=== PATIENT | female | born 1960 | race Two or more races ===

== ENCOUNTER 2017-08-12 10:47 | Emergency (ER) | payer MEDICAID ==
[~2017-08-12] VITALS: Ht 162.6 cm; Wt 65.3 kg
[2017-08-12 10:55] VITALS: BP 131/78
== END 2017-08-12 11:52 | disposition home or self-care (01) ==
LOC: ER 10:49
DX: S13.4XXA Sprain of ligaments of cervical spine, initial encounter (principal); G43.909 Migraine, unspecified, not intractable, without status migrainosus; E78.5 Hyperlipidemia, unspecified; K21.9 Gastro-esophageal reflux disease without esophagitis; X58.XXXA Exposure to other specified factors, initial encounter; Y93.89 Activity, other specified; Y92.89 Other specified places as the place of occurrence of the external cause; Y99.8 Other external cause status
CPT/HCPCS: A4606; Z7610